=== PATIENT | female | born 1980 | race African-American/Black ===

== ENCOUNTER 2017-11-01 10:30 | Outpatient (CLI) | payer MEDICAID | END 2017-11-01 10:31 | disposition home or self-care (01) | LOC: BICULT 10:30 | PROVIDERS: ATTEND Nurse Practitioner Women's Health | DX: N92.0 Excessive and frequent menstruation with regular cycle (principal); N85.2 Hypertrophy of uterus; D25.9 Leiomyoma of uterus, unspecified; N83.8 Other noninflammatory disorders of ovary, fallopian tube and broad ligament | CPT/HCPCS: 76856; 93976 ==

== ENCOUNTER 2018-12-26 09:30 | Inpatient (IN) | payer OTHER ==
[2018-12-26 10:04] VITALS: BMI 39.4
[2019-01-21] MEDS ORDERED: Clindamycin/D5W 900 mg/50 ml Premix Bag ONE (07:14)
[2019-01-21] MEDS ORDERED: Gabapentin 300 MG CAP ONE (07:14)
[2019-01-21] MEDS ORDERED: CeleCOXIB 100 MG CAP ONE (07:14)
[2019-01-21] MEDS ORDERED: Famotidine/PF 20 mg/2ml Vial ONE (07:15)
[2019-01-21] MEDS ORDERED: Fentanyl 100 MCG/2 ML VIAL ONE ×2 (07:29→11:58)
[2019-01-21] MEDS ORDERED: Meperidine HCl/PF 25 MG/ML VIAL ONE (07:29)
[2019-01-21] MEDS ORDERED: Clindamycin/D5W 900 MG in Premix Bag 1 BAG IVPB SCH (07:30)
[2019-01-21] MEDS ORDERED: Gentamicin Sulfate 500 MG in Sodium Chloride 0.9% 100 ML IVPB SCH (07:30)
[2019-01-21 07:37] LABS: BHCG - Serum Negative (NEGATIVE); Pregs Control Background? CLEAR/WHITE (CLR/WHITE); Pregs Control Bar Appear? YES (CONTROL BAR)
[2019-01-21] MEDS ORDERED: Bupivacaine HCl 0.5%/Epinephrine 1:200,000/PF 30 ml Vial ONE (07:38)
[2019-01-21] MEDS ORDERED: Midazolam HCl 2 mg/2 ml Vial ONE (07:48)
[2019-01-21 07:49] LABS: #Basophils 0.1 thou/uL (0.0-0.2); #Eosinphils 0.3 thou/uL (0.0-0.7); #Lymphocytes 1.9 thou/uL (1.20-3.40); #Monocytes 0.8 thou/uL (0.11-0.59); #Neutrophils 3.9 thou/uL (1.40-6.50); %Basophils 1.7 % (0.0-1.0); %Eosinophils 4.2 % (0.0-10.0); %Lymphocytes 27.1 % (21.0-51.0); %Monocytes 10.9 % (0.0-10.0); %Neutrophils 56.1 % (42.0-75.0); Hemoglobin 9.8 g/dL (12.0-16.0); Mean Corpuscular HGB CONC 31.3 g/dL (32.0-36.0); Mean Corpuscular Hemoglobin 24.4 pg (27.0-31.0); Mean Corpuscular Volume 77.9 fL (78.0-98.0); Mean Platelet Volume 8.6 fL (7.4-10.4); Platelet Count 360 thou/uL (130-400); RBC Distribution Width 20.7 % (11.5-14.5); Red Blood Cell (RBC) Count 4.01 mill/uL (4.20-5.40)
[2019-01-21] MEDS ORDERED: SUGAMMADEX SODIUM 200 MG/2 ML VIAL ONE (07:57)
[2019-01-21 08:18] LABS: Anion Gap 12 mmol/L (10-20); BUN (Urea Nitrogen) 7 mg/dL (7.0-18.7); Calc. Creatinine Clearance 157 mL/min (70-130); Calcium 9.3 mg/dL (7.8-10.44); Carbon Dioxide 24 mmol/L (22-29); Chloride 105 mmol/L (98-107); Estimated GFR-MDRD Greater than 90; Glucose 178 mg/dL (70-105); Potassium 4.3 mmol/L (3.5-5.1); Sodium 137 mmol/L (136-145)
[2019-01-21] MEDS ORDERED: Levofloxacin 500 mg/D5W 100 ml Premix Bag ONE (08:36)
[2019-01-21 09:22] LABS: Microcytosis SLIGHT = 6-15 cells (100X) (0-5/hpf)
[2019-01-21] MEDS ORDERED: Promethazine HCl 25 MG/ML VIAL SLOW IVP PRN (10:29)
[2019-01-21] MEDS ORDERED: Ondansetron HCl/PF 4 MG/2 ML Vial IVP PRN (10:29)
[2019-01-21] MEDS ORDERED: Promethazine HCl 25 MG/ML VIAL IM PRN ×2 (10:29→10:50)
[2019-01-21] MEDS ORDERED: Ketorolac Tromethamine 30 MG/ML VIAL IVP PRN (10:29)
[2019-01-21] MEDS ORDERED: Ondansetron PF 4 MG/2 ML Vial IVP PRN (10:50)
[2019-01-21] MEDS ORDERED: Morphine 4 MG/ML VIAL SLOW IVP PRN (10:50)
[2019-01-21] MEDS ORDERED: Simethicone Chewable 80 MG TAB PO PRN (10:50)
[2019-01-21] MEDS ORDERED: Zolpidem Tartrate 5 MG TAB PO PRN (10:50)
[2019-01-21] MEDS ORDERED: Bisacodyl 10 MG SUPP PR PRN (10:50)
[2019-01-21] MEDS ORDERED: HYDROcodone/Acetaminophen 5/325 mg Tablet PO PRN (10:50)
[2019-01-21] MEDS ORDERED: diphenhydrAMINE 25 MG CAP PO PRN (10:50)
[2019-01-21] MEDS: Sodium Chloride 0.9% 1,000 ML IV SCH ×2 (12:57→19:00)
[2019-01-21] MEDS: Ketorolac Tromethamine 30 MG/ML VIAL IVP SCH ×2 (12:57→17:58)
[2019-01-22] MEDS: Ketorolac Tromethamine 30 MG/ML VIAL IVP SCH (01:03)
[2019-01-22] MEDS: HYDROcodone/Acetaminophen 5/325 mg Tablet PO PRN ×2 (01:06→10:25)
[2019-01-22] MEDS: Sodium Chloride 0.9% 1,000 ML IV SCH (03:00)
[2019-01-22 04:40] LABS: Anion Gap 11 mmol/L (10-20); BUN (Urea Nitrogen) 7 mg/dL (7.0-18.7); Calc. Creatinine Clearance 177 mL/min (70-130); Calcium 8.4 mg/dL (7.8-10.44); Carbon Dioxide 22 mmol/L (22-29); Chloride 106 mmol/L (98-107); Estimated GFR-MDRD Greater than 90; Glucose 156 mg/dL (70-105); Potassium 3.7 mmol/L (3.5-5.1); Sodium 135 mmol/L (136-145)
[2019-01-22] MEDS ORDERED: Ibuprofen 800 MG TAB PO SCH (06:00)
[2019-01-22 06:22] LABS: Hemoglobin 7.4 g/dL (12.0-16.0); Mean Corpuscular HGB CONC 31.6 g/dL (32.0-36.0); Mean Corpuscular Hemoglobin 24.9 pg (27.0-31.0); Mean Corpuscular Volume 78.8 fL (78.0-98.0); Mean Platelet Volume 8.6 fL (7.4-10.4); Platelet Count 291 thou/uL (130-400); RBC Distribution Width 20.2 % (11.5-14.5); Red Blood Cell (RBC) Count 2.97 mill/uL (4.20-5.40); White Blood Cell (WBC) Count 10.5 thou/uL (4.8-10.8)
[2019-01-22 07:25] VITALS: BP 116/66; TEMP 98.6
[2019-01-22] MEDS ORDERED: Ferrous Sulfate 325 MG TAB PO SCH (08:00)
--- NOTE | 2019-01-22 08:13 | OP ---
DATE OF PROCEDURE: PREOPERATIVE DIAGNOSES: 1. Abnormal uterine bleeding. 2. Uterine fibroids. 3. Chronic pelvic pain. POSTOPERATIVE DIAGNOSES: 1. Abnormal uterine bleeding. 2. Uterine fibroids. 3. Chronic pelvic pain. AUTOMATIC TRIMMING SEWER: Gertrude Disla PA-C. PROCEDURES PERFORMED: 1. Robotic-assisted total laparoscopic hysterectomy with a bilateral salpingectomy. 2. Contained extracorporeal morcellation using He containment system and GelPOINT device. COMPLICATIONS: None. ANESTHESIA: General. ESTIMATED BLOOD LOSS: 100 mL. IV FLUIDS: 1800 mL. URINARY OUTPUT: 175 mL of clear urine. FINDINGS: Normal-appearing external genitalia. Normal vaginal and cervical epithelium. Uterus approximately 14 weeks in size with multiple large fibroids including approximately 5 to 6 cm posterior pedunculated fibroid. A 5 cm anterior fibroid and approximately 4 to 5 cm left cornual fibroid. Normal-appearing fallopian tube remnants with evidence of bilateral tubal ligation and normal-appearing ovaries. Uterus weight was 609 g. INDICATIONS FOR THE PROCEDURE: Ms. Mary Hernandez is a 39-year-old G2, P2, who presented to clinic for evaluation of abnormal bleeding due to an enlarged fibroid uterus. She underwent an endometrial biopsy which was benign and counseled on her interventions and preferred definitive surgical management with a hysterectomy. She was counseled on rounds of hysterectomy and preferred minimally invasive technique with a plan for contained extracorporeal morcellation. DESCRIPTION OF PROCEDURE: The patient was brought to the operating room. She was placed under general anesthesia. The patient was placed in dorsal lithotomy position using Nicola stirrups. She was prepped and draped in a sterile fashion. An official time-out was performed. She was given Levaquin 500 mg and clindamycin 900 mg for preoperative prophylaxis. A single-sided speculum was placed in the vagina. The anterior aspect of the cervix was grasped using single-tooth tenaculum. The cervix was sequentially dilated. The uterus was sounded to approximately 10 cm. The DANIKA manipulator was inserted using a 10 cm length and 4 cm cup. The remaining instruments were removed from the vagina. The Peterson catheter was placed. The gloves were changed. Attention was turned to the abdominal portion. A supraumbilical incision was made using a scalpel and a Veress needle was inserted into the peritoneal cavity noting a normal pressure. The peritoneal cavity was insufflated using carbon dioxide. A 12 mm trocar was then placed at this site. The robotic camera was inserted and the anatomy was evaluated. The patient was placed in steep Trendelenburg position. Additional [employer] assistant manager ports were placed, two robotics, one on the right and one on the left aspect and an additional 11 mm trocar on the right aspect of the abdomen, all were placed under direct visualization and using local anesthesia. The 12 mm trocar site was then extended using the scalpel along the skin and also along the fascia. The mini He retractor was then inserted through this fascial defect and appropriately secured. The He containment bag was then placed in an accordion folding fashion into the right upper quadrant. The GelPOINT was then reattached to the He retractor and the 12 mm trocar was also within this GelPOINT. The abdomen was re-insufflated. The robot was then docked to the patient and the robotic instruments were then inserted. Attention was turned to the left aspect. The remaining portion of the left fallopian tube was elevated, transected and removed. There was a Falope ring on the left that was also removed. The left utero-ovarian ligament was then coagulated multiple times and transected. The posterior leaf of the broad ligament was then undermined and transected. The round ligament was coagulated multiple times and transected on the left aspect, allowing further entrance into the broad ligament. The anterior leaf was undermined and transected allowing re-creation of a bladder flap anteriorly. The left uterine vessels were then further skeletonized. The anterior dissection was continued along the anterior aspect over to the right side, allowing for an inferior reflection of the bladder. The right fallopian tube was then elevated and transected and removed. The right utero-ovarian ligament was coagulated and transected as well. The right round ligament was also coagulated and transected. Entrance into the broad ligament on the right aspect was performed. It should be noted that the ureteral course and peristalsis was noted bilaterally prior to proceeding to the cardinal ligament dissection. The posterior leaf of the broad ligament was then undermined and transected. The attention was turned anteriorly. The bladder reflection was performed in a meticulous dissection using the technique. The left uterine vessels were then coagulated multiple times and transected. Attention was turned to the right aspect. The right uterine vessels were further skeletonized the right uterine vessels were then coagulated multiple times and transected. There was additional bleeding from the right aspect likely due to neovascularization from the additional fibroid and enlargement of the uterus and this was quickly controlled and again was coagulated multiple times and transected. The colpotomy was performed in a circumferential fashion initially starting anteriorly, stopping at the sides and then completing it posteriorly and then completing at the level of 3 and 9 o'clock with additional cautery to maintain hemostasis. The uterus and cervix were then completely from the vaginal epithelium. The DANIKA manipulator was then deflated and removed. The uterus and cervix remained inside the abdomen. The pelvis was irrigated and cleared of all clot and debris. The vaginal cuff was closed in a running fashion using 2-0 Stratafix suture and the suture was removed. The pelvis was again irrigated and cleared of all clot and debris. All sites were evaluated and hemostatic. The He containment bag was then brought down to the pelvis and it was opened. The uterus and pedunculated fibroid were then placed into the He bag and this tail was then brought up through the GelPOINT. The robotic arms were then removed. The robot was undocked from the patient. The He containment bag was then brought up through the He retractor and the fibroids were located inside the bag and the He retractor was then placed on the inside of the bag as well for protection. The specimen was morcellated using the technique and this required approximately 25 minutes of morcellation. Once the morcellation was complete, the He retractor and the He bag removed and noted to be intact. So, the fascia along the midline incision was closed in a running fashion using 0 Vicryl. The remaining trocars were also removed and the skin was closed using 4-0 Monocryl and Dermabond at all sites. The patient was then taken out of dorsal lithotomy position and placed supine. She was extubated without difficulty. All counts were correct x2. There was no complications and the patient transferred to the recovery room in hemodynamically stable condition. Job ID: [id number]
--- NOTE | 2019-01-22 09:42 | PRG ---
DATE OF SERVICE: 01/22/2019 Postoperative day #1, status post robotic assisted total laparoscopic hysterectomy with bilateral salpingectomy and contained extracorporeal morcellation. HISTORY OF PRESENT ILLNESS: The patient reports minimal pain with good pain control with oral medications. She is voiding, ambulating, and passing flatus. The patient is also tolerating oral intake. She denies any vaginal bleeding. OBJECTIVE: VITAL SIGNS: Blood pressure 116/66, oxygen saturation 100% on room air. Respiratory rate 14, pulse is 90, temperature is 98.6. Urine output is 1550 mL since her surgery. GENERAL: No acute distress. CARDIOVASCULAR: Regular rate. RESPIRATORY: Nonlabored breathing. ABDOMEN: Soft, mild distention. Mild tenderness to palpation as expected postoperatively. Incisions clean, dry, and intact with Dermabond in place. EXTREMITIES: No edema. Negative Homans. LABS: White blood cell count is 10.5, hemoglobin is 7.4, hematocrit is 23.4, creatinine is 0.71, glucose is 156 this morning. ASSESSMENT: Postop day #1 status post robotic assisted total laparoscopic hysterectomy with bilateral salpingectomy and contained extrapleural morcellation. PLAN: The patient is meeting all postoperative requirements for discharge. Her pain is well controlled. She is tolerating oral intake, passing flatus, and voiding without difficulty. We will plan for discharge home today after breakfast and follow up in two weeks. Job ID: [id number]
--- NOTE | 2019-01-23 05:52 | DIS ---
DATE OF ADMISSION: 01/21/2019 DATE OF DISCHARGE: 01/22/2019 ADMISSION DIAGNOSES: 1. Postoperative pain control, status post robotic-assisted total laparoscopic hysterectomy with bilateral salpingectomy and contained extracorporeal morcellation. 2. The patient lives over 1 hour from the hospital, therefore required outpatient evaluation and management in the hospital overnight. DISCHARGE DIAGNOSES: 1. Postoperative pain control, status post robotic-assisted total laparoscopic hysterectomy with bilateral salpingectomy and contained extracorporeal morcellation. 2. The patient lives over 1 hour from the hospital, therefore required outpatient evaluation and management in the hospital overnight. BRIEF HOSPITAL COURSE: Ms. Mary Hernandez is a 39-year-old female, postoperative day #1, status post a robotic-assisted total laparoscopic hysterectomy with bilateral salpingectomy and contained extracorporeal morcellation. Her intraoperative course was benign. She was kept for outpatient evaluation overnight for pain control due to living far from the hospital. Her postoperative course has also been benign. Her pain is controlled with oral medications. She is passing flatus, tolerating oral intake and voiding without difficulty. Her labs and vitals are stable. She does have slight anemia; however, this is due to chronic anemia with acute blood loss during her surgery. MEDICATIONS: 1. Amston 5/325 one tablet every 6 hours p.r.n. pain #30, zero refills. 2. Motrin 800 one tablet every 8 hours p.r.n. pain, #60, zero refills. 3. Iron sulfate 325 mg one tablet twice a day, #60 with 2 refills. ACTIVITY RESTRICTIONS: Pelvic rest. No heavy lifting, pushing, or pulling x6 weeks. FOLLOWUP: Follow up in 2 weeks. CODE: Full. DIET: Regular. Job ID: [id number]
== END 2019-01-22 10:37 | disposition home or self-care (01) | DRG 743 ==
LOC: SURG A 01-21 07:08 → 3SE 01-21 11:34
PROVIDERS: ADMIT Obstetrics & Gynecology; ATTEND Obstetrics & Gynecology
PROC: 0UT90ZZ Resection of Uterus, Open Approach (ICD-10-PCS; principal; 2019-01-21)
PROC: 0UT70ZZ Resection of Bilateral Fallopian Tubes, Open Approach (ICD-10-PCS; 2019-01-21)
PROC: 8E0W0CZ Robotic Assisted Procedure of Trunk Region, Open Approach (ICD-10-PCS; 2019-01-21)
DX: D25.9 Leiomyoma of uterus, unspecified (principal); N92.0 Excessive and frequent menstruation with regular cycle; E11.9 Type 2 diabetes mellitus without complications; D53.9 Nutritional anemia, unspecified; Z88.0 Allergy status to penicillin; Z88.2 Allergy status to sulfonamides; Z79.899 Other long term (current) drug therapy
CPT/HCPCS: 36415; 80048; 84703; 85025; 85027; 86850; 86900; 86901; 88307; J0131; J0670; J1580; J1885; J1956; J2175; J2250; J3010; J3490; S0028

== ENCOUNTER 2024-04-29 21:04 | Emergency (ER) | payer OTHER ==
[2024-04-29] MEDS ORDERED: Proparacaine 0.5% Opth 15 ML BOT ONE ×2 (22:02→22:56)
[2024-04-29] MEDS ORDERED: Fluorescein Opthalmic Strip ONE (22:02)
[2024-04-29] MEDS ORDERED: Proparacaine 0.5% Opth 15 ML BOT EA EYE SCH (23:00)
[2024-04-30] MEDS ORDERED: HYDROcodone/Acetaminophen 5/325 mg Tablet ONE (00:24)
== END 2024-04-30 00:20 | disposition home or self-care (01) ==
LOC: ERS 21:04
DX: S05.01XA Injury of conjunctiva and corneal abrasion without foreign body, right eye, initial encounter (principal); E11.9 Type 2 diabetes mellitus without complications; X58.XXXA Exposure to other specified factors, initial encounter
CPT/HCPCS: 99283